=== PATIENT | male | born 1980 | race Caucasian/White ===

== ENCOUNTER 2023-06-06 15:20 | Emergency (ER) | payer MEDICAID ==
[~2023-06-06] VITALS: Ht 177.8 cm; Wt 91.9 kg
[~2023-06-06 15:20] MED LIST: WARF-113 PO
[2023-06-06 15:24] VITALS: BP 132/81; PULSE 92; RESP 16; TEMP 98.6; O2SAT 96
[2023-06-06] MEDS ORDERED: WARF10TA45 PO (16:01)
[2023-06-06] MEDS: enoxaparin 30mg/0.3ml syringe SUBCUT ONE (16:03)
== END 2023-06-06 16:13 | disposition home or self-care (01) ==
LOC: ER 15:21
DX: I74.8 Embolism and thrombosis of other arteries (principal); Z79.899 Other long term (current) drug therapy
CPT/HCPCS: 96372; 99283; J1650

== ENCOUNTER 2023-07-24 12:52 | Emergency (ER) | payer MEDICAID, OTHER ==
[~2023-07-24] VITALS: Ht 177.8 cm; Wt 94.0 kg
[~2023-07-24 12:52] MED LIST changes: +WARF10TA45 PO
[2023-07-24 13:13] VITALS: BP 128/81; PULSE 93; RESP 18; TEMP 98.4; O2SAT 95
[2023-07-24] MEDS ORDERED: WARF-55 PO (15:38)
[2023-07-24 16:10] LABS: PROTHROMBIN TIME 9.9 SECONDS (9.0-12.0)
[2023-07-24 16:13] LABS: INR 0.9 INR
== END 2023-07-24 16:34 | disposition home or self-care (01) ==
LOC: ER 12:52
DX: I74.8 Embolism and thrombosis of other arteries (principal); Z76.0 Encounter for issue of repeat prescription; Z56.0 Unemployment, unspecified; Z79.01 Long term (current) use of anticoagulants
CPT/HCPCS: 16000; 36415; 85610; 99283

== ENCOUNTER 2024-02-05 17:19 | Emergency (ER) | payer MEDICAID ==
[~2024-02-05] VITALS: Ht 177.8 cm; Wt 84.1 kg
[~2024-02-05 17:19] MED LIST changes: +WARF-55 PO
[2024-02-05 17:32] VITALS: TEMP 98.3
[2024-02-05 20:32] VITALS: O2SAT 99
[2024-02-05] MEDS ORDERED: APIX5TAB3 PO (21:45)
[2024-02-05 22:07] VITALS: BP 115/62; PULSE 61; RESP 19
[2024-02-05] MEDS: apixaban 5mg tablet PO SCH (22:17)
[2024-02-07] MEDS ORDERED: APIX5TAB3 PO (11:31)
== END 2024-02-06 00:07 | disposition home or self-care (01) ==
LOC: ER 17:20
DX: S90.512A Abrasion, left ankle, initial encounter (principal); I82.592 Chronic embolism and thrombosis of other specified deep vein of left lower extremity; D68.8 Other specified coagulation defects; Z79.02 Long term (current) use of antithrombotics/antiplatelets; Z56.0 Unemployment, unspecified; X58.XXXA Exposure to other specified factors, initial encounter; Y93.89 Activity, other specified; Y92.89 Other specified places as the place of occurrence of the external cause; Y99.8 Other external cause status
CPT/HCPCS: 93971; 99284

== ENCOUNTER 2024-02-07 10:38 | Emergency (ER) | payer MEDICAID ==
[~2024-02-07] VITALS: Ht 177.8 cm; Wt 87.0 kg
[~2024-02-07 10:38] MED LIST changes: +APIX5TAB3 PO
[2024-02-07 10:40] VITALS: BP 120/85; PULSE 99; RESP 16; O2SAT 97
[2024-02-07] MEDS ORDERED: APIX5TAB3 PO (11:31)
[2024-02-07] MEDS: apixaban 5mg tablet PO ONE (11:43)
[2024-02-07 11:45] VITALS: TEMP 98
== END 2024-02-07 11:50 | disposition home or self-care (01) ==
LOC: ER 10:39
DX: I82.462 Acute embolism and thrombosis of left calf muscular vein (principal); D68.59 Other primary thrombophilia; Z79.899 Other long term (current) drug therapy
CPT/HCPCS: 99283

== ENCOUNTER 2025-01-29 10:44 | Emergency (ER) | payer MEDICAID ==
[~2025-01-29] VITALS: Ht 177.8 cm; Wt 89.6 kg
[2025-01-29 10:48] VITALS: BP 112/82; PULSE 82; RESP 18; TEMP 97.3; O2SAT 96
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
--- NOTE | 2025-01-29 14:55 | RADIOLOGY REPORT ---
[facility] INDICATION: neck pain TECHNICAL DATA: The following views were obtained of the cervical spine: Frontal, lateral,swimmer's, open mouth . COMPARISON: None FINDINGS: C1-7 are visualized on the lateral view for evaluation of alignment. Cervical curvature is normal. There is no spondylolisthesis. Vertebral body heights are maintained. Disk heights are normal. The facet joints appear normal. The dens and predental space demonstrate no abnormality. The C1-C2 articulation appears normal. Prevertebral soft tissues are within normal limits. IMPRESSION: No acute fracture or dislocation of the cervical spine.
== END 2025-01-29 17:33 | disposition home or self-care (01) ==
LOC: ER 10:45
DX: M54.2 Cervicalgia (principal); Z79.899 Other long term (current) drug therapy; Z56.0 Unemployment, unspecified; V49.9XXA Car occupant (driver) (passenger) injured in unspecified traffic accident, initial encounter; Y93.89 Activity, other specified; Y92.89 Other specified places as the place of occurrence of the external cause; Y99.8 Other external cause status
CPT/HCPCS: 72040; 99283